=== PATIENT | male | born 1945 | race Caucasian/White ===

== ENCOUNTER 2020-10-09 08:19 | Outpatient (CLI) | payer OTHER | END 2020-10-09 20:46 | disposition home or self-care (01) | LOC: SNM 08:19 | PROVIDERS: ATTEND Urology Pediatric Urology | DX: C61 Malignant neoplasm of prostate (principal); M47.816 Spondylosis without myelopathy or radiculopathy, lumbar region | CPT/HCPCS: 78306; A9503 ==